=== PATIENT | male | born 1960 | race Caucasian/White ===

== ENCOUNTER → 2022-01-18 12:01 | Outpatient (CLI) | payer BC, SELFPAY ==
--- NOTE | ~2022-01-18 | XR_ITS ---
EXAMINATION: XR lumbar spine min 4V DATE: 01/18/2022 12:41 INDICATION: Low back pain TECHNIQUE: Anteroposterior and lateral views of the lumbar spine, and cone-down lateral view of the l umbosacral junction were obtained. COMPARISON: None. FINDINGS: There are 2 mm of retrolisthesis of L5 on S1. There is moderate loss of intervertebral disc space height at L5-S1 and mild loss of intervertebral disc space height throughout the remainder of the lumbar spine. The vertebral body heights are normal. Small degenerative osteophytes project from the anterior endplates of multiple vertebral bodies. Surgical clips are noted in the pelvis. There is no fracture. 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 IMPRESSION: 1. Moderate lumbar spondylosis without acute findings. Reviewed, dictated and finalized at location A.
== END ==
DX: M47.896 Other spondylosis, lumbar region (principal); Z85.46 Personal history of malignant neoplasm of prostate
CPT/HCPCS: 72110